=== PATIENT | female | born 1930 | race Caucasian/White ===

== ENCOUNTER → 2017-03-11 | Outpatient (CLI) | payer MEDICARE, BC ==
[~2017-03-11] MED LIST: ARMO180T PO; ARMO90TA PO; ASPI81TA23 PO; ASPI81TA82 PO; BERB1TAB PO; CARV12.52 PO; CHOL1CAP6 PO; CLON.2 PO; CO Q100C7 PO; COQ-50CA2 PO; CURCPOW PO; DIOV320T PO; DIOV320T6 PO; EMPA1TAB3 PO; FURO1TAB93 PO; FURO40TA PO; KLOR10TA PO; LANTUS2P SC; LANTUS2P SQ; LANTUSP SQ; METF500 PO; METF500T PO; MULT-65 PO; NALT1TAB3 PO; NIFE10 PO; NOVOLOGP2 SQ; POTA-243 PO; PRED2.5T PO; PRED5TAB PO; RED1CAP4 PO; RED600TA PO; RESV50CA PO; SERT25TA83 PO; VISION ESSENTIALS PO; VITA1CAP7 PO; VITA200013 PO; VITA250T3 PO; [UNRECOGNIZED DRUG - CODE] PO
== END ==
LOC: PHPRE 14:00
PROVIDERS: ATTEND Ophthalmology
DX: Z01.812 Encounter for preprocedural laboratory examination (principal)

== ENCOUNTER → 2017-03-25 | Day surgery (SDC) | payer MEDICARE, BC ==
--- NOTE | 2017-03-13 12:17 | MH ---
cc: ANDREI DEL RIO M.D. DATE OF ADMISSION: 03/25/2017 ADMITTING DIAGNOSIS: Cataract left eye. HISTORY OF PRESENT ILLNESS: This 86 year old white female is coming through [facility] for the purpose of a lens extraction of the left eye with intraocular lens implant under local anesthesia. She has noted decreasing visual acuity interfering with her daily activities and elected to have the above procedure. She had a similar procedure on her right eye in July 2015 and has done well postoperatively. She now is requesting cataract surgery for her left eye, due to her history of optic neuropathy. Her best corrected visual acuity in the right eye is only 20/100. Best corrected visual acuity in the left eye in room light is 20/50 +2. PAST MEDICAL HISTORY: 1. 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 2. History of hypertension. 3. Diabetes. 4. Thyroid problems. 5. Shattered humerus from a fall in April 2016. PAST SURGICAL HISTORY: 1. Includes; Tonsillectomy. 2. Hysterectomy. 3. Vein surgery on her legs. 4. Bilateral knee replacements. 5. Focal laser treatment in both eyes. 6. Cataract surgery in the right eye. 7. Pacemaker placement and having plates in her right leg from the fall. DAILY MEDICATIONS: 1. Lantus insulin. 2. Diovan 3. Furosemide 4. [place] 5. Metformin 6. [place] thyroid. 7. Prednisone 2 mg. 8. Procardia 9. Flagyl as needed 10. Baby aspirin. 11. Verbatin 12. Visual essentials 13. Vitamin D. 14. CoQ 10 15. Tumeric 16. Red yeast rice 17. Vitamin pack. ALLERGIES STATINS LEVAQUIN CAUSES NAUSEA. SOCIAL HISTORY: The patient has not smoked in june years and minimal when she did and does not drink alcohol. FAMILY HISTORY: NONCONTRIBUTORY. REVIEW OF SYSTEMS: HEAD: Patient denies severe headaches, dizziness or recent head injury. EARS: Patient Has hearing loss and wears hearing aides, ear pain, discharge or ringing in the ears. NOSE: Patient denies nasal discharge, obstruction or frequent colds. MOUTH AND THROAT: Patient denies soreness of the mouth or tongue, bleeding gums, trouble swallowing, changes in voice or sore throat. NECK: Patient denies neck pain or swelling, limitation of neck movement or neck injury. CARDIOPULMONARY SYSTEM: Patient denies shortness of breath, orthopnea, chronic cough, sputum production, hemoptysis, chest pain, wheezing, palpitations or light-headedness. She sleeps in a recliner with her CPAP machine. GI SYSTEM: Patient denies poor appetite, nausea, vomiting, abdominal pain, ulcers, hemorrhoids or change in bowel habits. SYSTEM: The patient denies urinary frequency, dysuria, change in urine color. She gets up to urinate twice per night, has urinary frequency due to Lasix. NERVOUS SYSTEM: Patient denies convulsions, vertigo, stroke, numbness or she has some weakness in her right leg and the humerus of her right arm. The rest is negative. PHYSICAL EXAMINATION: VITAL SIGNS: Blood pressure 128/72, Pulse 76, Respirations 16. HEAD, EYES, EARS, NOSE, AND THROAT: Normocephalic, atraumatic. Nose without rhinorrhea. Throat clear. NECK: Supple. CHEST: Clear. HEART: Regular rhythm with her pacemaker. ABDOMEN: Without tenderness. EXTREMITIES: The extremities have mild edema. NEUROLOGIC: Within normal limits. MENTAL STATUS: Within normal limits. EYE EXAMINATION: The patients best corrected visual acuity is 20/100 in right eye, 20/50 -1+2 in the left eye in room light. Visual hills are full to confrontation testing except for inferonasally in the left eye. Extraocular muscle examination reveals full versions of orthophoria for distance and near. Pupils are 3 mm equal, round and reactive to light without afferent defect. Anterior segment combination reveals a posterior chamber intraocular lens placed in the right eye and nuclear sclerosis and cortical cataract changes in the left eye. Intraocular pressure is 15 in the right eye and 16 in the left by applanation tenotomy. Dilated fundus examination reveals sharp discs with cup to disc ratio of 0.3 bilaterally. The right disc is pale secondary to ischemic optic neuropathy. 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 The posterior vitreus detachment is present bilaterally. IMPRESSION: 1. Cataract right eye. 2. Pseudophakia right eye. 3. Status post ischemic optic neuropathy, right eye greater then left. 4. Posterior vitreus attachment both eyes. 5. Nonproliferative diabetic retinopathy both eyes. Status post focal laser treatment. PLAN: Lens extraction of the left eye with intraocular lens implant under local anesthesia through [facility]. The patient has been cleared medically. She has been counseled as to the risks, benefits and alternatives and elected to proceed. I feel that cataract surgery will improve the quality of life and activities of daily living in this patient. MD TROY Gilliam/misha /9:29 AM /9:37 AM
[~2017-03-25] VITALS: Ht 160 cm; Wt 102.0 kg
[~2017-03-25] MED LIST changes: +ACETYLCHOLINE CHL OPHT SOLN 1:100 2 ML VIAL ONE; -ARMO90TA PO; -ASPI81TA82 PO; +CHLORHEXIDINE GLUCONATE 2 % 1 PACK (2 CLOTHS) TOPICAL PRN; -CHOL1CAP6 PO; -CLON.2 PO; -CO Q100C7 PO; -CURCPOW PO; -DIOV320T6 PO; -EMPA1TAB3 PO; +EPINEPHrine HCL PF/SF (1:1000) 1 MG/ML AMP I-OCULAR ONE; +ESMOLOL HCL 100 MG/10 ML VIAL ONE; -FURO1TAB93 PO; +HYALURONIDASE/LIDOCAINE/BUPIVACAINE 5 ML SYR LEFT EYE ONE; +LABETALOL HCL 100 MG/20 ML VIAL ONE; +LACTATED RINGER'S 1000 ML IV PRN; -LANTUS2P SC; -LANTUSP SQ; +LIDOCAINE HCL 2% PF 5 ML VIAL ONE; -METF500 PO; +METOPROLOL TARTRATE 25 MG TAB PO PRN; -NALT1TAB3 PO; -NOVOLOGP2 SQ; +PILOCARPINE HCL 2% OPHT SOLN 15 ML BTL ONE; -POTA-243 PO; +POVIDONE IODINE 5% (ANTISEPSIS KIT) 4 APPLICATIONS EACH NARE PRN; -PRED5TAB PO; +PROPARACAINE HCL 0.5% OPHT SOLN 15 ML BTL LEFT EYE ONE; +PROPOFOL 200 MG/20 ML AMP ONE; -RED600TA PO; +SODIUM CHLORID 0.9% 500 ML IV PRN; +TOBRAMYCIN/DEXAMETHASONE OPTH OINT 3.5 GM TUBE ONE; +VISCOAT OPHT IRRIG SOLN 0.75 ML SYRINGE ONE; -[UNRECOGNIZED DRUG - CODE] PO
[2017-03-25] MEDS: DICLOFENAC SOD 0.1% OPHT SOLN 2.5 ML BTL LEFT EYE SCH ×4 (07:52→08:01)
[2017-03-25] MEDS: GATIFLOXACIN 0.5% OPHT SOLN 2.5 ML BTL LEFT EYE SCH ×4 (07:52→08:01)
[2017-03-25] MEDS: TROPICAMIDE 1% OPHT SOLN 15 ML BTL LEFT EYE SCH ×4 (07:52→08:01)
[2017-03-25] MEDS: CYCLOPENTOLATE HCL 1% OPHT SOLN 2 ML BTL LEFT EYE SCH ×4 (07:52→08:01)
[2017-03-25] MEDS: PHENYLEPHRINE HCL 2.5% OPTH SOLN 2 ML BTL LEFT EYE SCH ×4 (07:52→08:01)
[2017-03-25 07:53] VITALS: PULSE 73
[2017-03-25 08:35] VITALS: PULSE 52
[2017-03-25 11:15] VITALS: BP 140/72; PULSE 69; RESP 16; TEMP 97.6; O2SAT 99
--- NOTE | 2017-03-25 11:16 | MP ---
cc: ANDREI LUA DATE OF SURGERY March 25, 2017 PREOPERATIVE DIAGNOSIS: Cataract left eye. POSTOPERATIVE DIAGNOSIS: Cataract left eye. OPERATION: Extracapsular cataract extraction with posterior chamber intraocular lens implant by phacoemulsification, left eye. SURGEON: Andrei Lua M.D. ANESTHESIA: Local. COMPLICATIONS: None. INDICATIONS: See history and physical previously dictated. OPERATIVE PROCEDURE: The patient had adequate retrobulbar and eyelid blocks administered in the holding area and was brought to the operating room. The left eye was prepped and draped in the usual sterile ophthalmic manner. A lid speculum was inserted in the left eye. A 4-0 silk bridle suture was placed through the conjunctiva near the superior rectus muscle and it was tagged to the drape. A fornix-based conjunctival flap was prepared spanning approximately 5 mm in width. Hemostasis was obtained with wet-field cautery. A 3.5 mm groove was made 1 mm from the limbus and dissected up to the limbus in the form of a scleral pocket incision. A stab incision was then made at the 2 o'clock position. Viscoelastic was injected into the anterior chamber. The anterior chamber was entered with a 2.75 mm keratome through the scleral pocket incision. A 360 degree continuous curvilinear capsulorrhexis was then performed. Hydrodissection was utilized to divide the nucleus into inner and outer components and to separate the cortex from the capsule. Phacoemulsification was then utilized to remove the nucleus. The outer nuclear layer was removed with irrigation and aspiration and short bursts of ultrasound as necessary. The cortex was removed with the irrigation/aspiration handpiece. The posterior capsule was polished with the capsule polisher. Viscoelastic was injected into the capsular bag. The intraocular lens was inspected and found to be in good condition. The lens utilized was an Harrison, model number SA60AT with a power of +23.5 diopters. The lens was inserted into the capsular bag. The viscoelastic in the anterior chamber was then removed with the irrigation-aspiration handpiece. Viscoelastic was also removed from beneath the intraocular lens. The anterior chamber was filled with Miochol-E through the stab incision and pressurized. The wound was checked for leaks at this pressure and normalized pressure and there were none. The 4-0 bridle suture was removed. The conjunctival flap was brought down over the wound and secured with cautery. Pilocarpine 2% eye drops were instilled topically. The lid speculum was removed. TobraDex ophthalmic ointment was applied. The eye was double patched and shielded. The patient tolerated the procedure well and left the Operating Room in satisfactory condition. MD TROY Gilliam/DAVID /10:28 AM /11:09 AM
== END | disposition home or self-care (01) ==
LOC: PHSDC 07:02
PROVIDERS: ATTEND Ophthalmology
DX: H26.9 Unspecified cataract (principal); I10 Essential (primary) hypertension; E11.9 Type 2 diabetes mellitus without complications; Z79.4 Long term (current) use of insulin; M31.6 Other giant cell arteritis; H47.013 Ischemic optic neuropathy, bilateral; Z95.0 Presence of cardiac pacemaker
CPT/HCPCS: 00142; 66984; 82948; J0171; J7040; V2632